=== PATIENT | male | born 1970 | race Two or more races ===

== ENCOUNTER → 2025-02-04 | Emergency (ER) | payer MEDICAID ==
[~2025-02-04] VITALS: Ht 170.2 cm; Wt 70.0 kg
[2025-02-04 22:15] VITALS: TEMP 97.805264
[2025-02-04 23:29] LABS: APPEARANCE,URINE TURBID (CLEAR); GLUCOSE, URINE (UA) NEGATIVE (NEGATIVE); LEUKOCYTE ESTERASE ,URINE TRACE (NEGATIVE); NITRATE,URINE NEGATIVE (NEGATIVE); OCCULT BLOOD,URINE LARGE (NEGATIVE); SPECIFIC GRAVITIY, URINE 1.022 (1.003-1.030)
[2025-02-05 00:15] LABS: SQUAMOUS EPITHELIAL CELL,UR Rare /LPF (None Seen); YEAST,URINE Few /HPF (None Seen)
[2025-02-05 00:41] VITALS: BP 133/77; PULSE 75; RESP 15; O2SAT 98
== END | disposition still patient (30) ==
LOC: EMS 22:00
DX: S30.21XA Contusion of penis, initial encounter (principal); X58.XXXA Exposure to other specified factors, initial encounter; Y93.89 Activity, other specified; Y92.89 Other specified places as the place of occurrence of the external cause; Y99.8 Other external cause status
CPT/HCPCS: 81001; 87086; 99283